=== PATIENT | female | born 1975 | race Caucasian/White ===

== ENCOUNTER 2016-07-16 18:19 | Emergency (ER) | payer OTHER ==
[2016-07-16] MEDS ORDERED: KETOROLAC TROMETHAMINE 30 MG/ML VIAL ONE (18:46)
[2016-07-16] MEDS ORDERED: ONDANSETRON HCL 4 MG/2 ML VIAL ONE (18:46)
[2016-07-16] MEDS ORDERED: DIPHENHYDRAMINE 50 MG/ML VIAL ONE (18:46)
[2016-07-16] MEDS ORDERED: NORMAL SALINE 250 ML IV ONE (18:47)
[2016-07-16] MEDS ORDERED: PENICILLIN VK PREPAC 500 MG TABLET PO ONE (20:53)
--- NOTE | 2016-07-16 21:04 | ER NURSING DOCUMENTATION ---
Nurse's Notes [facility] Name:Demetrice Alcantar Age:40 yrs Sex:Female :1975 Arrival Date:07/16/2016 Time:18:19 Bed3 Private MD: Diagnosis:Intractable Migraine - Cephalgia;Dehydration;Dentalgia Presentation: 07/16 18:31 Acuity: SCHUYLER 3 18:50 Presenting complaint: Patient states: Frontal headache since yesterday afternoon with sj nausea, no vomiting. Mostly behind eyes and forehead, radiates to occiput. Took Tylenol 1500 mg last at 1600. Also has two teeth needing extraction on right lower jaw that are exacerbating the pain. Transition of care: Home. 18:50 Method Of Arrival: Private Vehicle Triage Assessment: 18:55 Headache History: The patient has had previous headaches and this one is similar to previous episodes. General: Appears distressed, uncomfortable, Behavior is anxious, cooperative, pleasant, restless. Pain: Complains of pain in forehead, right eye and left eye Pain radiates to occipital area Pain currently is 9 out of 10 on a pain scale. Pain began 1 day ago Also complains of nausea, photophobia, inability to work. Neuro: Level of Consciousness is awake, alert, Oriented to person, place, time, event, Denies paresthesias. Cardiovascular: Capillary refill < 3 seconds. Respiratory: Respiratory effort is even, unlabored, Respiratory pattern is regular. Historical: - Allergies: Keflex; SULFA (SULFONAMIDES); Codeine; - Home Meds: 1. Acetaminophen Oral 2. Benadryl Oral - PMHx: PTSD; MIGRAINES; substance abuse - meth; - PSHx: ; Cholecysectomy; TUBAL LIGATION; - Tetanus: < 10 years. - Ebola Screening: : Patient negative for fever greater than or equal to 101.5 degrees Fahrenheit, and additional compatible Ebola Virus Disease symptoms. Patient denies exposure to infectious person. Patient denies travel to an Ebola-affected area in the 21 days before illness onset. No symptoms or risks identified at this time. . - Immunization history: Pneumococcal vaccine is not up to date, Patient has never been vaccinated Flu Vaccine None. - Social history: Smoking status: Patient states former smoker of tobacco. Patient uses alcohol occasionally. street drugs, methylenedioxymethamphetamine, IV drugs, marijuana quit smoking 2 days ago. Screenin:58 Infectious Disease Risk None. Abuse screen: Denies threats or abuse. Denies injuries sj from another. Nutritional screening: No deficits noted. Assessment: 18:57 See Triage Assessment done by same RN. Pain: Complains of pain in frontal, radiates to sj scalp. Vital Signs: 17:40 BP 120 / 63; Pulse 82; Resp 22; Temp 98.9(O); Pulse Ox 94% on R/A; Weight 90.72 kg; sj Height 5 ft. 11 in. (180.34 cm); Pain 9/10; 19:00 BP 104 / 50; Pulse 72; Pulse Ox 96% on R/A; sj 19:15 BP 115 / 67; Pulse 72; Pulse Ox 96% on R/A; sj 19:30 BP 103 / 79; Pulse 94; Pulse Ox 93% on R/A; sj 20:57 BP 123 / 69; Pulse 87; Resp 16; Pulse Ox 95% on R/A; Pain 1/10; sj 17:40 Body Mass Index 27.89 (90.72 kg, 180.34 cm) [place] Coma Score: 18:55 Eye Response: spontaneous(4). Verbal Response: oriented(5). Motor Response: obeys cd commands(6). Total: 15. 20:30 Eye Response: spontaneous(4). Verbal Response: oriented(5). Motor Response: obeys cd commands(6). Total: 15. ED Course: 18:21 Patient arrived in ED. ama 18:31 Jelly Ferreira is Primary Nurse. sj 18:31 Triage completed. sj 18:57 Notified ED Physician of patient's arrival and chief complaint. Dr. Mata notified. sj 18:58 Valuables Given to family. Patient has correct armband on for positive identification. Bed in low position. Call light in reach. Side rails up X2. Warm blanket given. 18:58 Inserted peripheral IV: 20 gauge in right hand. sj 18:59 Jelly Ferreira is Primary Nurse. sj 19:32 Mike Mata MD is Attending Physician. cd Administered Medications: 18:40 Drug: NS 0.9% 1000 ml; Route: IV; Rate: bolus; Site: right hand; sj 21:02 Follow up: IV Status: Completed infusion; IV Intake: 1000ml sj 18:45 Drug: Zofran 4 mg; Route: IVP; Infused Over: 2 mins; Site: right hand; sj 20:58 Follow up: Response: Nausea is decreased sj 18:46 Drug: Toradol 30 mg; Route: IVP; Site: right hand; sj 20:59 Follow up: Response: Pain is decreased sj 18:48 Drug: Benadryl 50 mg; Route: IVP; Site: right hand; sj 20:59 Follow up: Response: No adverse reaction sj 18:50 Drug: NS 0.9% 250 , Compazine 10 mg; Route: IVPB; Rate: 750 ml/hr; Infused Over: 20 sj mins; Site: right hand; 20:59 Follow up: IV Status: Completed infusion; IV Intake: 250ml sj 20:59 Follow up: Response: Pain is decreased sj 21:00 Drug: Penicillin VK 500 mg; Route: PO; sj 21:01 Follow up: Response: Pharmacy closed - take home med pack sj Intake: 20:59 IV: 250ml; Total: 250ml. sj 21:02 IV: 1000ml; Total: 1250ml. Outcome: 20:41 Discharge ordered by . aston 20:58 Discharged to home ambulatory, with family. 20:58 Condition: improved 20:58 Instructed on discharge instructions, follow up and referral plans. medication usage, Demonstrated understanding of instructions, medications, Prescriptions given X 1. 20:58 IV D/Mike 21:03 Patient left the ED. 07/17 11:48 Discharge F/U Call: Unable to reach: no answer 07/18 09:41 Discharge F/U Call: Unable to reach: no answer Signatures: Dipti Hwang, RN RN Mike Wagner MD MD cd Averdick, Andrew, Dalton Reg Jelly Stauffer
--- NOTE | 2016-07-16 21:04 | ER PHYSICIAN DOCUMENTATION ---
Physician Documentation [facility] Name:Demetrice Alcantar Age:40 yrs Sex:Female :1975 Arrival Date:07/16/2016 Time:18:19 Bed3 Private MD: Mike Patton Disposition: 07/16/16 20:41 Discharged to Home/Self Care. Impression: Intractable Migraine - Cephalgia, Dehydration, Dentalgia. - Condition is Good. - Discharge Instructions: DEHYDRATION (6y-Adult), HEADACHE, Migraine (Classical), TOOTH PAIN - DENTAL PAIN. - Medical Reconciliation form form. - Follow up: Private Physician; When: 1 week; Reason: Recheck today's complaints, Continuance of care. - Problem is an acute exacerbation. - Symptoms are resolved. - Notes: Rest and drink plenty of fluids. Take Pen VK 500mg by mouth every 6 hours for 10 days... See the Dentist at the [facility]. [phone] HPI: 07/16 18:30 This 40 yrs old Female presents to ER via Private Vehicle with complaints of cd Headache, Toothache. 18:30 The patient complains of pain to the forehead, right cheondoism and right jaw. The patient cd describes the headache as constant, throbbing, unrelenting. Onset: The symptoms/episode began/occurred acutely, yesterday. Associated signs and symptoms: Pertinent positives: right lower toothaches from poor dentition. The patient reports a history of Migraine Headaches and reports this headache feels very similar to past headaches. She has vomited about 3 times. Denies fever or chills., Pertinent negatives: altered mental status, fever, neck stiffness, sinus congestion, sinus tenderness, vision loss, weakness. Severity of symptoms: At its worst the pain was severe, "similar to past headaches", in the emergency department the pain is unchanged, despite home interventions, of Tylenol at 1600 PM. Headache History: The patient has had previous headaches and this one is similar to previous episodes. Risk factors for subarachnoid hemhorrage: no risk factors present. The patient has not experienced similar symptoms in the past. Historical: - Allergies: Keflex; SULFA (SULFONAMIDES); Codeine; - Home Meds: 1. Acetaminophen Oral 2. Benadryl Oral - PMHx: PTSD; MIGRAINES; substance abuse - meth; - PSHx: ; Cholecysectomy; TUBAL LIGATION; - Tetanus: < 10 years. - Ebola Screening: : Patient negative for fever greater than or equal to 101.5 degrees Fahrenheit, and additional compatible Ebola Virus Disease symptoms. Patient denies exposure to infectious person. Patient denies travel to an Ebola-affected area in the 21 days before illness onset. No symptoms or risks identified at this time. . - Immunization history: Pneumococcal vaccine is not up to date, Patient has never been vaccinated Flu Vaccine None. - Social history: Smoking status: Patient states former smoker of tobacco. Patient uses alcohol occasionally. street drugs, methylenedioxymethamphetamine, IV drugs, marijuana quit smoking 2 days ago. ROS: 18:45 Cardiovascular: Negative for chest pain, palpitations, edema and pleuritic pain. cd Respiratory: Negative for shortness of breath, dyspnea on exertion, cough, sputum production, wheezing, hemoptysis and pleuritic chest pain. Abdomen/GI: Negative for abdominal pain, nausea, vomiting, diarrhea, constipation, distension, melena, hematochezia and hematemesis. Back: Negative for injury, pain or muscle spasms. MS/Extremity: Negative for injury, deformity, edema, calf tenderness, pain or coldness. 18:45 Skin: Negative for injury, rash, itching and discoloration. cd 18:45 Constitutional: Positive for poor PO intake, Negative for chills, fever. 18:45 Eyes: Positive for photophobia. 18:45 ENT: Positive for dental pain, Negative for ear pain, rhinorrhea, sinus congestion, sinus pain, sore throat, difficulty swallowing, difficulty handling secretions. 18:45 Neck: Negative for pain at rest, stiffness. 18:45 Neuro: Positive for headache, Negative for altered mental status, loss of consciousness, seizure activity, speech changes, syncope, visual changes, weakness. 18:45 All other systems are negative. Exam: Cardiovascular: Regular rate and rhythm with a normal S1 and S2. No gallops, murmurs, or rubs. Normal PMI, no JVD. No pulse deficits. Respiratory: Lungs have equal breath sounds bilaterally, clear to auscultation and percussion. No rales, rhonchi or wheezes noted. No increased work of breathing, no retractions or nasal flaring. Abdomen/GI: Soft, non-tender, with normal bowel sounds. No distension or tympany. No guarding or rebound. No evidence of tenderness throughout. Back: No spinal tenderness. No costovertebral tenderness. Full range of motion. Skin: Warm, dry with normal turgor. Normal color with no rashes, no lesions, and no evidence of cellulitis. MS/ Extremity: Pulses equal, no cyanosis. Neurovascular intact. Full, normal range of motion. 18:55 Neuro: Awake and alert, GCS 15, oriented to person, place, time, and situation. cd Cranial nerves II-XII grossly intact. Motor strength 5/5 in all extremities. Sensory grossly intact. Cerebellar exam normal. Normal gait. 18:55 Constitutional: The patient appears alert, awake, non-diaphoretic, non-toxic, well developed, well nourished, anxious, obese, in obvious distress, severely distressed. 18:55 Head/face: Sinus tenderness, is not appreciated. 18:55 Eyes: Pupils: equal, round, and reactive to light and accomodation, Extraocular movements: intact throughout, Conjunctiva: normal. 18:55 ENT: TM's: are normal, Mouth: is normal, Posterior pharynx: is normal, Dental exam: abscess, is not appreciated, dental caries, that is moderate, specifically in the lower right first molar (#30) and lower right second molar (#31), gum swelling, not appreciated, pain, that is mild, Breath odor: is normal. 18:55 Neck: ROM/movement: is normal, no acute changes. 18:55 Neuro: Orientation: is normal, to person, place & time. Mentation: is normal, lucid, Cranial nerves: CN II- XII are normal as tested, Cerebellar function: no acute changes, Motor: is normal, moves all fours, Sensation: is normal, Gait: is steady. Vital Signs: 17:40 BP 120 / 63; Pulse 82; Resp 22; Temp 98.9(O); Pulse Ox 94% on R/A; Weight 90.72 kg; sj Height 5 ft. 11 in. (180.34 cm); Pain 9/10; 19:00 BP 104 / 50; Pulse 72; Pulse Ox 96% on R/A; sj 19:15 BP 115 / 67; Pulse 72; Pulse Ox 96% on R/A; sj 19:30 BP 103 / 79; Pulse 94; Pulse Ox 93% on R/A; sj 20:57 BP 123 / 69; Pulse 87; Resp 16; Pulse Ox 95% on R/A; Pain 1/10; sj 17:40 Body Mass Index 27.89 (90.72 kg, 180.34 cm) [place] Coma Score: 18:55 Eye Response: spontaneous(4). Verbal Response: oriented(5). Motor Response: obeys cd commands(6). Total: 15. 20:30 Eye Response: spontaneous(4). Verbal Response: oriented(5). Motor Response: obeys cd commands(6). Total: 15. MDM: 18:30 Data interpreted: Pulse oximetry: on room air is 95 %. Interpretation: normal. cd 18:45 Data reviewed: vital signs, nurses notes, old medical records, and as a result, I will cd continue to observe the patient, administer antihistamines, benadryl, followed by Compazine for her Migraine Headache, administer IV fluids, NS bolus, NS maintenence, prescribe pain medication, Toradol. 18:50 Differential diagnosis: cluster headache, migraine, tension headache, vasomotor cd headache, Dehydration, Dental infection. 19:32 Patient medically screened. cd 20:25 Response to treatment: the patient's symptoms have resolved after treatment, the cd patient's pain is gone, the patient's condition has returned to base line, the patient is now symptom free, patient is well hydrated. and as a result, I will discharge patient. 20:30 Neurological re-evaluation: normal neurological exam including cranial nerves, cd orientation, mentation, motor and sensory exam, cerebellar testing, GCS normal, and normal gait. Counseling: I had a detailed discussion with the patient and/or guardian regarding: the historical points, exam findings, and any diagnostic results supporting the discharge/admit diagnosis, the need for outpatient follow up, for a recheck, with the patient's primary care provider, to return to the emergency department if symptoms worsen or persist or if there are any questions or concerns that arise at home. Dispensed Medications: 18:40 Drug: NS 0.9% 1000 ml; Route: IV; Rate: bolus; Site: right hand; 21:02 Follow up: IV Status: Completed infusion; IV Intake: 1000ml sj 18:45 Drug: Zofran 4 mg; Route: IVP; Infused Over: 2 mins; Site: right hand; sj 20:58 Follow up: Response: Nausea is decreased sj 18:46 Drug: Toradol 30 mg; Route: IVP; Site: right hand; sj 20:59 Follow up: Response: Pain is decreased sj 18:48 Drug: Benadryl 50 mg; Route: IVP; Site: right hand; sj 20:59 Follow up: Response: No adverse reaction sj 18:50 Drug: NS 0.9% 250 , Compazine 10 mg; Route: IVPB; Rate: 750 ml/hr; Infused Over: 20 sj mins; Site: right hand; 20:59 Follow up: IV Status: Completed infusion; IV Intake: 250ml sj 20:59 Follow up: Response: Pain is decreased sj 21:00 Drug: Penicillin VK 500 mg; Route: PO; sj 21:01 Follow up: Response: Pharmacy closed - take home med pack sj Signatures: Mike Mata MD MD cd Janzen, Sarah
== END 2016-07-16 21:04 | disposition home or self-care (01) ==
LOC: ER 18:19
DX: G43.019 Migraine without aura, intractable, without status migrainosus (principal); E86.0 Dehydration; K08.89 Other specified disorders of teeth and supporting structures; K02.9 Dental caries, unspecified; R11.10 Vomiting, unspecified
CPT/HCPCS: 96365; 96366; 96375; 99283; J1200; J1885; J2405; J7050